=== PATIENT | female | born 1990 | race Caucasian/White ===

== ENCOUNTER 2019-12-27 15:03 | Emergency (ER) | payer MEDICAID ==
[~2019-12-27] VITALS: Ht 162.6 cm; Wt 87.0 kg
[~2019-12-27 15:03] MED LIST: INSLIS SQ; INSU3INS6 SUBCUT; LABE100T5 PO; LEVO125T8 PO; PREN1CAP13 PO
[2019-12-27 16:29] LABS: BASOPHILS % 0.9 % (0.0-2.0); EOSINOPHILS % 0.8 % (0.0-5.0); HEMATOCRIT. 39.7 % (36.0-48.0); HEMOGLOBIN. 13.1 g/dL (12.0-16.0); LYMPHOCYTES % 26.3 % (20.0-50.0); MEAN CORPUSCULAR HEMOGLOBIN 30.5 pg (28.0-32.0); MEAN CORPUSCULAR VOLUME 92.3 fL (81.0-99.0); MONOCYTES % 4.9 % (2.0-8.0); NEUTROPHILS % 67.1 % (40.0-76.0); RED CELL DISTRIBUTION WIDTH 13.5 % (11.6-14.6)
[2019-12-27 16:31] LABS: CHLORIDE 99 mEq/L (98-107)
[2019-12-27 17:26] LABS: MEAN PLATELET VOLUME 12.3 fl (7.4-10.4); PLATELET 158 x1000/uL (130-400); PLATELET ESTIMATE NORMAL
[2019-12-27 17:56] VITALS: BP 144/88
== END 2019-12-27 17:59 | disposition home or self-care (01) ==
LOC: ER 15:03
DX: R00.2 Palpitations (principal); I10 Essential (primary) hypertension; E11.65 Type 2 diabetes mellitus with hyperglycemia; E05.90 Thyrotoxicosis, unspecified without thyrotoxic crisis or storm; Z79.4 Long term (current) use of insulin; Z79.899 Other long term (current) drug therapy
CPT/HCPCS: 36415; 71045; 80053; 83880; 84484; 85025; 93005; 99285